=== PATIENT | male | born 1965 | race Caucasian/White ===

== ENCOUNTER 2019-10-18 15:07 | Emergency (ER) | payer OTHER ==
[~2019-10-18] VITALS: Ht 182.9 cm; Wt 83.9 kg
[2019-10-18] MEDS ORDERED: Cleocin HCl300 MG PO (17:36)
[2019-10-18] MEDS ORDERED: Norco 5-325 Ta1 EACH PO (17:39)
[2019-10-18] MEDS ORDERED: IBUP600 PO ×2 (17:39→18:08)
[2019-10-18] MEDS ORDERED: HYDR1TAB94 PO (18:08)
[2019-10-18] MEDS ORDERED: CLIN300 PO (18:08)
== END 2019-10-18 17:55 | disposition home or self-care (01) ==
LOC: ER 15:07
DX: K04.7 Periapical abscess without sinus (principal); I10 Essential (primary) hypertension; K02.9 Dental caries, unspecified
CPT/HCPCS: 99282

== ENCOUNTER 2021-03-26 09:08 | Day surgery (SDC) | payer OTHER ==
[~2021-03-26] VITALS: Ht 182.9 cm; Wt 85.8 kg
[~2021-03-26 09:08] MED LIST: ATOR20 PO; CLIN300 PO; Cleocin HCl300 MG PO; HYDR1TAB94 PO; IBUP600 PO; Lisinopril-Hct1 EAC4 PO; METO25ER PO; Norco 5-325 Ta1 EACH PO; OMEP20ER PO
--- NOTE | 2021-03-26 10:15 | NUR ---
History, Chart, Medications and Allergies reviewed before start of procedure.Pre-Op teaching done. Pt verbalizes understanding. Patient States Post-Procedure ride home has been arranged.
--- NOTE | 2021-03-26 11:12 | NUR ---
03/26/21 1112 Willian Nelson History, Chart, Medications and Allergies reviewed before start of procedure. MONITOR INTACT WITH CONTINUOUS PULSE OXIMETRY AND INTERMITTENT BP. 3-LEAD EKG REVIEWED WITH PHYSICIAN PRIOR TO START OF PROCEDURE. O2 VIA N/C INTACT THROUGHOUT SEDATION/PROCEDURE. PATIENT DETERMINED TO BE ASA APPROPRIATE FOR PROPOFOL SEDATION PRIOR TO START OF PROCEDURE BY DR. CHRISTIAN.
--- NOTE | 2021-03-26 11:55 | NUR ---
Patient up to Ambulate independently. Gait steady. Discharge instructions reviewed with patient. Patient verbalizes understanding. Copy given to patient to take home. Discharged via wheelchair to private car for ride home WITH .
--- NOTE | 2021-03-26 12:17 | NUR ---
UPON DISCHARGE, DISCHARGE VOLUNTEER CALLED DAY SURGERY TO NOTIFY THAT PT DID NOT IN FACT HAVE A RIDE HOME BY HIS "GIOVANNI" HE STATED PREVIOUSLY. PT ATTEMPTED TO HAVE [employer]ERS SIGN HIS "BOTTLE MACHINE OPERATOR" RELEASE ON DISCHARGE INSTRUCTIONS PER VOLUNTEER. DISCHARGE VOLUNTEER BROUGHT PT BACK INTO HOSPITAL WHERE HE GOT UP FROM W/C AND WALKED TO HIS PRIVATE VEHICLE WHERE HE WAS SEEN GETTING IN AND DRIVING HIMSELF OUT OF THE PARKING LOT PER VOLUNTEER. NON EMERGENT POLICE NUMBER CALLED TO INFORM OF THE PT LEAVING AND DRIVING AFTER RECIEVING SEDATION. DR. CHRISTIAN NOTIFIED.
== END 2021-03-26 12:00 | disposition home or self-care (01) ==
LOC: ORSCMMR 09:08 → ORD 10:30 → ORSCMMR 12:00
PROVIDERS: Internal Medicine Gastroenterology
PROC: 0DBL8ZX Excision of Transverse Colon, Via Natural or Artificial Opening Endoscopic, Diagnostic (ICD-10-PCS; principal; 2021-03-26 10:30)
PROC: 0DBN8ZX Excision of Sigmoid Colon, Via Natural or Artificial Opening Endoscopic, Diagnostic (ICD-10-PCS; principal; 2021-03-26 10:30)
DX: Z12.11 Encounter for screening for malignant neoplasm of colon (principal); K63.5 Polyp of colon; D12.3 Benign neoplasm of transverse colon; I10 Essential (primary) hypertension; E78.00 Pure hypercholesterolemia, unspecified; J44.9 Chronic obstructive pulmonary disease, unspecified; K31.9 Disease of stomach and duodenum, unspecified; F17.210 Nicotine dependence, cigarettes, uncomplicated; Z79.899 Other long term (current) drug therapy
CPT/HCPCS: 88305; J2704; J7120